=== PATIENT | female | born 1990 | race Caucasian/White ===

== ENCOUNTER 2017-12-05 09:05 | Day surgery (SDC) | payer OTHER, MEDICAID ==
[~2017-12-05 09:05] MED LIST: CEFAZOLIN 1 GM INJ; DIPHENHYDRAMINE 50 MG INJ IV; EPHEDrine SULFATE 50 MG/5 ML SYG IV; FENTAnyl 50 MCG/ML VIAL; FENTAnyl 50 MCG/ML VIAL IV; GLYCOPYRROLATE 0.4 MG INJ; HYDROmorphONE (0.2 MG/ML) 10ML SYG IV; LABETALOL HCL 20MG INJ IV; LACTATED RINGER'S 1,000 ML IV; LIDOCAINE 2% (SDV) 5 ML INJ; MEPERIDINE 25 MG INJ IV; MIDAZOLAM 1 MG/ML 2 ML INJ; MIDAZOLAM 1 MG/ML 2 ML INJ IV; NEOSTIGMINE 3 MG/3 ML SYRINGE; ONDANSETRON 4 MG INJ IV; OXYCODONE/ACETAMINOPHEN (5/325) TAB PO; PROPOFOL 20 ML; ROCURONIUM 50 MG INJ; hydrALAzine 20 MG INJ IV; morphine (1 MG/ML) 10ML SYRINGE IV
[2017-12-05 09:40] LABS: ADD MAN DIFF? NO
[2017-12-05 09:42] LABS: WHITE BLOOD COUNT 6.4 10^3/ul (4.8-10.8)
[2017-12-05 09:42] LABS: BASOPHILS % 0.5 % (0.0-2.0); EOSINOPHILS # 0.1 10^3/ul (0.0-0.5); EOSINOPHILS % 1.7 % (0.0-7.0); HEMATOCRIT 41.2 % (37.0-47.0); HEMOGLOBIN 13.6 g/dl (12.0-16.0); LYMPHOCYTES # 1.9 10^3/ul (0.8-2.9); LYMPHOCYTES % 29.7 % (15.0-51.0); MEAN CORPUSCULAR HEMOGLOBIN 27.9 pg (29.0-33.0); MEAN CORPUSCULAR VOLUME 84.6 fl (82.0-101.0); MEAN PLATELET VOLUME 12.2 fl (7.4-10.4); MONOCYTE # 0.4 10^3/ul (0.3-0.9); MONOCYTES % 5.5 % (0.0-11.0); NEUTROPHILS % 62.4 % (39.0-77.0); PLATELET COUNT 173 10^3/UL (140-415); RED BLOOD COUNT 4.87 10^6/ul (4.20-5.40); RED CELL DISTRIBUTION WIDTH 12.5 % (11.5-14.5)
[2017-12-05] MEDS ORDERED: OXYCODONE/ACETAMINOPHEN (5/325) TAB PO (10:30)
[2017-12-05] MEDS ORDERED: HYDROmorphONE (0.2 MG/ML) 10ML SYG IV ×2 (10:30)
[2017-12-05] MEDS ORDERED: PROPOFOL 20 ML (10:39)
[2017-12-05] MEDS ORDERED: SUCCINYLCHOLINE CHLORIDE 100 MG/5 ML SYG IV (10:39)
[2017-12-05] MEDS ORDERED: ACETAMINOPHEN 1000MG/100ML IV 100 ML (10:39)
[2017-12-05] MEDS ORDERED: ONDANSETRON 4 MG INJ (10:39)
[2017-12-05] MEDS ORDERED: ROCURONIUM 50 MG INJ (10:39)
[2017-12-05] MEDS ORDERED: MIDAZOLAM 1 MG/ML 2 ML INJ (10:39)
[2017-12-05] MEDS ORDERED: DEXAMETHASONE 4 MG/ML 1 ML INJ (10:39)
[2017-12-05] MEDS ORDERED: FENTAnyl 50 MCG/ML VIAL (10:39)
[2017-12-05] MEDS ORDERED: FAMOTIDINE 20 MG INJ (11:33)
[2017-12-05] MEDS ORDERED: OCULAR LUBRICANT 3.5 GM OPH OINT (11:42)
[2017-12-05] MEDS ORDERED: SUGAMMADEX SODIUM 200 MG/2 ML VIAL IV (11:53)
[2017-12-05] MEDS: MEPERIDINE 25 MG INJ IV (12:24)
[2017-12-05] MEDS: ONDANSETRON 4 MG INJ IV (12:25)
[2017-12-05] MEDS: FENTAnyl 50 MCG/ML VIAL IV ×2 (12:27→13:31)
[2017-12-05] MEDS ORDERED: IBUPROFEN 600 MG TAB PO (16:30)
== END 2017-12-05 16:45 | disposition home or self-care (01) ==
LOC: SDS 09:05
DX: Z30.2 Encounter for sterilization (principal); Z64.1 Problems related to multiparity
CPT/HCPCS: 58670; 84703; 85025; 86850; 86900; 86901